=== PATIENT | male | born 1955 | race Caucasian/White ===

== ENCOUNTER 2016-11-16 17:22 | Emergency (ER) | payer OTHER ==
[~2016-11-16] VITALS: Ht 171.4 cm; Wt 64.0 kg
[~2016-11-16 17:22] MED LIST: BENZ1TAB PO; CLON.5 PO; DILA100C PO; HYDR-3533 PO; ZYPR20TA PO
[2016-11-16 17:29] VITALS: BP 121/83; PULSE 78; RESP 16; TEMP 98.2; O2SAT 99
[2016-11-16] MEDS ORDERED: DILA100C PO (17:38)
[2016-11-16] MEDS ORDERED: CLON.5 PO (17:38)
[2016-11-16] MEDS ORDERED: BENZ0.5T PO (17:38)
[2016-11-16] MEDS ORDERED: ZYPR20TA PO (17:38)
[2016-11-16] MEDS ORDERED: PRIS100T PO (17:38)
--- NOTE | 2016-11-16 18:10 | PD ---
HPI Chief Complaint: Pain: Acute or Chronic Time Seen by Provider: 18:06 Travel History International Travel<30 days: No Contact w/Intl Traveler<30days: No Traveled to known affect area: No History of Present Illness HPI 61-year-old male with history of seizures, psychiatric issues, COPD, presents to the ER today because he states that he woke up this morning with pain in the left upper back area behind his shoulder. He states this started on his own, worsens with pressure on the area and movements. He denies any shortness of breath, chest pains, or any other issues. He does not know any injuries. Modifying Factors: Worse with movement Associated Signs & Symptoms: Left posterior shoulder pain which she rates as 7 out of 10 Risk Factors: None PFSH Past Medical History Hx Anticoagulant Therapy: No Anxiety: Yes Depression: Yes Cancer: No Cardiovascular Problems: Yes (CHOL) Diabetes: No Diminished Hearing: No Endocrine: No Genitourinary: No Hepatitis: No Hiatal Hernia: No Immune Disorder: Yes (Arthritis) Musculoskeletal: No Neurologic: Yes (Epilepsy / Seizures) Psychiatric: Yes (Depression) Reproductive: No Respiratory: Yes (COPD) Seizures: Yes Thyroid Disease: No Tetanus Vaccination: Unknown Influenza Vaccination: No ?: Not Past Surgical History Abdominal Surgery: No AICD: No Cardiac Surgery: No Ear Surgery: No Endocrine Surgery: No Eye Surgery: No Genitourinary Surgery: No Gynecologic Surgery: No Joint Replacement: No Oral Surgery: No Pacemaker: No Thoracic Surgery: No Other Surgery: Yes (Umbilical Hernia Repair, TUMOR REMOVED 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) Social History Alcohol Use: No Tobacco Use: Yes (2 PPD) Substance Use: No Allergies-Medications (Allergen,Severity, Reaction): Coded Allergies: No Known Allergies (Verified , 11/16/16) Reported Meds & Prescriptions Reported Meds & Active Scripts Active Reported Pristiq 24 HR (Desvenlafaxine ER 24 HR) 100 Mg Tab 100 Mg PO DAILY Dilantin (Phenytoin Extended) 100 Mg Cap 300 Mg PO DAILY Zyprexa (Olanzapine) 20 Mg Tab 20 Mg PO HS Klonopin (Clonazepam) 0.5 Mg Tab 0.5 Mg PO BID Benztropine (Benztropine Mesylate) 0.5 Mg Tab 0.5 Mg PO HS Review of Systems Except as stated in HPI: all other systems reviewed are Neg Physical Exam Narrative GENERAL: Well-developed middle age white male patient currently in mild distress. Awake and oriented 3. SKIN: Focused skin assessment warm/dry. HEAD: Atraumatic. Normocephalic. EYES: Pupils equal and round. No scleral icterus. No injection or drainage. ENT: No nasal bleeding or discharge. Mucous membranes pink and moist. NECK: Trachea midline. No JVD. CARDIOVASCULAR: Regular rate and rhythm. No murmur appreciated. Pulses are present and equal bilaterally. CHEST: Nontender throughout without deformity or crepitance. No retractions or use of accessory muscles. RESPIRATORY: No accessory muscle use. Clear to auscultation. Breath sounds equal bilaterally. GASTROINTESTINAL: Abdomen soft, non-tender, nondistended. Hepatic and splenic margins not palpable. MUSCULOSKELETAL: No obvious deformities. No clubbing. No cyanosis. No edema. BACK: No CVA tenderness. No rash. No point tenderness on palpation of the spine. There is tenderness to palpation of the left upper back area without obvious deformities, erythema, or obvious rashes. NEUROLOGICAL: Awake and alert. No obvious cranial nerve deficits. Motor grossly within normal limits. Normal speech. PSYCHIATRIC: Appropriate mood and affect; insight and judgment normal. Data Data Last Documented VS Vital Signs Date Time Temp Pulse Resp B/P Pulse Ox O2 Delivery O2 Flow Rate FiO2 11/16/16 17:29 98.2 78 16 121/83 99 Orders Shoulder, Complete (>2vws) (11/16/16 18:06) Chest, Single Ap (11/16/16 18:06) [facility] Medical Decision Making Medical Screen Exam Complete: Yes Emergency Medical Condition: Yes Medical Record Reviewed: Yes Differential Diagnosis Left upper back painsmuscle strain versus muscle spasms versus early zoster versus acute pulmonary processes Narrative Course X-rays of the shoulder and chest did not reveal any signs of acute processes. At this point, more likely secondary to muscle spasms or muscle strain. My plan would be to give him symptomatically relief or pain and follow-up to primary care physician. Return for any worsening in symptoms as needed. The plan has been discussed with him and he states understanding. Diagnosis Primary Impression: Chest wall muscle strain Med/Other Pt SpecificInfo: Prescription(s) given Scripts Cyclobenzaprine (Flexeril)10 Mg Tab10 Mg PO TID #12 TAB Ref 0 Prov:Raymundo Golden MD 11/16/16 Ibuprofen (Motrin Ib)200 Mg Thoreg016 Mg PO Q6HR PRN (PAIN SCALE 1 TO 10) #28 Prov:Raymundo Golden MD 11/16/16 Disposition: 01 DISCHARGE HOME Condition: Stable Raymundo Golden MD Nov 16, 2016 18:10
--- NOTE | 2016-11-16 19:03 | RADHPO ---
EXAM DATE/TIME: 11/16/2016 18:37 [facility] COMPARISON: No previous studies available for comparison. INDICATIONS : Patient states no known injurt. Woke up this afternoon with left shoulder pain. MEDICAL HISTORY : None. SURGICAL HISTORY : None. ENCOUNTER: Initial ACUITY: 1 day PAIN SCORE: 0/10 LOCATION: Bilateral chest FINDINGS: A single view of the chest demonstrates the lungs to be symmetrically aerated without evidence of mas s, infiltrate or effusion. The cardiomediastinal contours are unremarkable. Osseous structures are intact. No evidence of pneumoperitoneum CONCLUSION: No acute disease. Nick Brito MD on November 16, 2016 at 19:00 Board Certified Radiologist. This report was verified electronically.
--- NOTE | 2016-11-16 19:07 | RADHPO ---
EXAM DATE/TIME: 11/16/2016 18:37 [facility] COMPARISON: No previous studies available for comparison. INDICATIONS : Patient states no known injurt. Woke up this afternoon with left shoulder pain. MEDICAL HISTORY : None. SURGICAL HISTORY : None. ENCOUNTER: Initial ACUITY: 1 day PAIN SCORE: 10/10 LOCATION: Left Shoulder. FINDINGS: Multiple view examination of the left shoulder demonstrates no evidence of fracture or dislocation. The glenohumeral and acromioclavicular joints are maintained. There is normal range of motion betwee n internal and external rotation. Bony mineralization is normal. CONCLUSION: Unremarkable examination of the left shoulder. Nick Brito MD on November 16, 2016 at 19:03 Board Certified Radiologist. This report was verified electronically.
[2016-11-16] MEDS ORDERED: IBUP-1129 PO (19:10)
[2016-11-16] MEDS ORDERED: CYCL1TAB29 PO (19:10)
[2016-11-16] MEDS ORDERED: CYCLOBENZAPRINE HCL 10 MG TAB PO ONE (19:15)
[2016-11-16] MEDS ORDERED: IBUPROFEN 600 MG TAB PO ONE (19:15)
[2016-11-16 19:23] VITALS: BP 118/80
== END 2016-11-16 19:26 | disposition home or self-care (01) ==
LOC: PHED 17:22
DX: S29.011A Strain of muscle and tendon of front wall of thorax, initial encounter (principal); G40.909 Epilepsy, unspecified, not intractable, without status epilepticus; F17.210 Nicotine dependence, cigarettes, uncomplicated; X58.XXXA Exposure to other specified factors, initial encounter
CPT/HCPCS: 71010; 73030; 99284